=== PATIENT | female | born 1990 | race Caucasian/White ===

== ENCOUNTER 2017-12-21 16:01 | Emergency (ER) | payer OTHER ==
[2017-12-21 16:41] VITALS: BP 109/59; PULSE 85; TEMP 98.9; BMI 23.6
--- NOTE | 2017-12-21 17:21 | PDOC ---
History of Present Illness - General Chief Complaint: Abscess Boil Stated Complaint: ABSCESS BOIL Time Seen by Provider: 12/21/17 16:37 History Source: Patient Exam Limitations: No Limitations - History of Present Illness Initial Comments: 12/21/17 patient came with cousin to emergency department for evaluation of lesions on her lower left perineum and upper inner buttock. States has had multiple lesions with need for hospitalization last March for IV antibiotics for same. States this lesion has never completely resolved and in fact has become more swollen and painful over the past few days. Patient lives in [place] but cousin who is a healthcare professional felt needed another opinion about this wound. States his drain some clearish fluid, has never come to a head or purulent drainage from this wound. However has had an abscess to buttocks that did have purulent drainage in the past. Denies fever but has not felt well. Is 5 months Timing/Duration: reports: just prior to arrival Severity: Yes: moderate Location: reports: genitalia Respiratory Risk Factors: reports: no cause identified Associated Symptoms: reports: swelling/mass/lumps Past History - Travel Traveled outside of the country in the last 30 days: No Close contact w/someone who was outside of country & ill: No - Past Medical History Allergies/Adverse Reactions: Allergies Allergy/AdvReac Type Severity Reaction Status Date / Time No Known Allergies Allergy Verified 12/21/17 16:25 Home Medications: Ambulatory Orders NK [No Known Home Medication] 12/21/17 COPD: No Other medical history: DENIES. - Suicide/Smoking/Psychosocial Hx Smoking History: Never smoked Review of Systems - Review of Systems Able to Perform ROS?: Yes Is the patient limited Kazakh proficient: Yes Constitutional: Yes: Symptoms Reported, See HPI, Malaise. No: Fever HEENTM: No: Symptoms Reported Respiratory: No: Symptoms reported Musculoskeletal: Yes: Symptoms Reported Integumentary: Yes: Symptoms Reported, See HPI, Lesions, Lumps Neurological: No: Symptoms reported All Other Systems: Reviewed and Negative *Physical Exam - Vital Signs Last Vital Signs Temp Pulse Resp BP Pulse Ox 98.9 F 85 17 109/59 98 12/21/17 16:25 12/21/17 16:25 12/21/17 16:25 12/21/17 16:25 12/21/17 16:25 - Physical Exam General Appearance: Yes: Nourished, Appropriately Dressed, Apparent Distress, Mild Distress HEENT: positive: KIESHA, Normal ENT Inspection, TMs Normal, Pharynx Normal Gastrointestinal/Abdominal: positive: Soft. negative: Normal Bowel Sounds Integumentary: positive: Swelling, Other (and lesion approximately 2 cm x 1 cm to upper left inner buttock just outside edge of perineum. Has no communication with labia or vagina. Has no communication with pilonidal area. Lesion is opened and draining serous fluid and is exquisitely painful with manipulation. Has no fluctuance, no purulent drainage.). 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 Does not communicate with any vaginal wall, labial folds, or pilonidal area. It is tender but not fluctuant. Cultures taken for bacterial and viral/herpes. Patient understands due to 5 months we'll hold antibiotics until culture results indicate need, patient will call in 2 days for that bacterial results and understands herpes culture will take 3-7 days for results. 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 Avoid strenuous activity or exercise until wound is healed Use hot soaks to area to bring more blood to the surface and encourage drainage May change dressings as needed to keep clean - Allow water from shower to wash area thoroughly for 2-3 minutes, and pat dry upon exit of shower and replace dressing. Change his dressing daily until the wound is completely healed. May use Tylenol or Motrin for mild pain relief Followup with private physician in 2-3 days for wound check Consider following up with soup person for thorough evaluation and possible skin biopsy Return to emergency Department for worsening swelling, pain, redness, fevers as needed - Post Discharge Activity
== END 2017-12-21 17:31 | disposition home or self-care (01) ==
LOC: JER 16:01 → JERFT 16:01
DX: N73.8 Other specified female pelvic inflammatory diseases (principal)
CPT/HCPCS: 36415; 86696; 87070; 87186; 87205; 87255; 99281-25